=== PATIENT | female | born 1980 | race Caucasian/White ===

== ENCOUNTER 2018-04-05 14:29 | Emergency (ER) | payer MEDICAID ==
[~2018-04-05] VITALS: Ht 165.1 cm; Wt 70.3 kg
--- NOTE | ~2018-04-05 | EKG ---
[place], [place] ELECTROCARDIOGRAM REPORT NAME: ALBA FARIAS UNIT #: [id number] ROOM: DOCTOR: EPIPHANY DRAFT REPORT BIRTHDATE: [birth year] [facility] [place] Test Date: 2018-04-05 Test Time: 14:43:35 Pat Name: ALBA FARIAS Department: Room: Gender: F [employer] Hand: : 1980 Requested By: EDEN BROWN Order Number: [id number] Reading MD: Tom Ly MD Measurements Intervals [place] Rate: 66 P: 53 [place]: 116 QRS: 44 QRSD: 84 T: 48 QT: 417 QTc: 437 Interpretive Statements Sinus rhythm Borderline short [place] interval Electronically Signed On 04-06-2018 8:11:48 PST by Tom Ly MD CM:EKGRPT:ELECTROCARDIOGRAM REPORT [id number] EDEN BATES DRAFT REPORT EDEN BROWN MD
[2018-04-05 15:39] LABS: BILIRUBIN NEGATIVE (NEGATIVE); BLOOD 3+ (NEGATIVE); CLARITY CLEAR (CLEAR); COLOR YELLOW (YELLOW); GLUCOSE NEGATIVE (NEGATIVE); KETONE TRACE (NEGATIVE); LEUKO ESTERASE NEGATIVE (NEGATIVE); NITRITE NEGATIVE (NEGATIVE); UROBILINOGEN 0.2 E.U./dl (0.2-1.0)
[2018-04-05 15:51] LABS: BASO % 0.3 % (0.0-1.0); EOS % 0.1 % (1.0-4.0); HEMATOCRIT 37.3 % (37.0-47.0); HEMOGLOBIN 12.6 g/dl (12.0-16.0); LYMPH # 1.7 10*3/uL (1.3-4.4); LYMPH % 16.2 % (27.0-41.0); MEAN CELL VOLUME 83.4 fl (81.0-99.0); MEAN CORPUSCULAR HGB 28.2 pg (27.0-31.0); MEAN CORPUSCULAR HGB CONC 33.8 g/dl (33.0-37.0); MEAN PLATELET VOLUME 10.1 fl (9.6-12.3); MONO # 0.7 10*3/uL (0.1-1.0); MONO % 7.1 % (3.0-9.0); NEUT # 7.8 10*3/uL (2.3-7.9); NEUT % 75.7 % (47.0-73.0); PLATELET COUNT AUTOMATED 320 10*3/uL (130-400); RED BLOOD COUNT 4.47 10*6/uL (4.10-5.10); RED CELL DISTRI WIDTH 12.2 % (0-14.5); WHITE BLOOD COUNT 10.3 10*3/uL (4.8-10.8)
[2018-04-05 15:54] LABS: BACTERIA 1+; EPITHELIAL CELLS 55-60; RBC TNTC rbc/hpf (0-2)
[2018-04-05 16:00] LABS: INTERNATIONAL NORM RATIO 1.1 (2.0-3.5)
[2018-04-05 16:10] LABS: ALBUMIN 3.8 gm/dl (3.1-4.5); ALKALINE PHOSPHATASE 60 U/L (45-117); BUN 12 mg/dl (7-24); CHLORIDE 101 mmol/L (98-107); LIPASE 111 U/L (73-393); POTASSIUM 3.1 mmol/L (3.5-5.1); SGOT/AST 9 IU/L (3-35); SGPT/ALT 14 U/L (12-78); SODIUM 136 mmol/L (136-145); TOTAL PROTEIN 7.5 gm/dL (6.4-8.2)
[2018-04-05 16:12] LABS: TROPONIN I < 0.015 ng/ml (<0.045)
[2018-04-05] MEDS ORDERED: ZOFRAN4 MG PO (20:59)
[2018-04-05] MEDS ORDERED: ZANTAC 150150 MG PO (20:59)
== END 2018-04-05 22:40 | disposition home or self-care (01) ==
LOC: ED 14:29
PROVIDERS: Physician Assistant
DX: R10.13 Epigastric pain (principal); R07.9 Chest pain, unspecified; R11.2 Nausea with vomiting, unspecified

== ENCOUNTER 2018-12-01 18:25 | Emergency (ER) | payer OTHER ==
[~2018-12-01] VITALS: Ht 167.6 cm; Wt 72.6 kg
[~2018-12-01 18:25] MED LIST: ZANTAC 150150 MG PO; ZOFRAN4 MG PO
[2018-12-01] MEDS ORDERED: NAPROSYN500 MG PO (20:03)
[2018-12-01] MEDS ORDERED: MEDROL DOSEPAK4 MG PO (20:03)
[2018-12-01] MEDS ORDERED: ROBAXIN500 M1 PO (20:03)
== END 2018-12-01 20:23 | disposition home or self-care (01) ==
LOC: ED 18:25
DX: S16.1XXA Strain of muscle, fascia and tendon at neck level, initial encounter (principal); F17.200 Nicotine dependence, unspecified, uncomplicated; Z79.899 Other long term (current) drug therapy; Y04.8XXA Assault by other bodily force, initial encounter; Y93.89 Activity, other specified; Y92.89 Other specified places as the place of occurrence of the external cause; Y99.8 Other external cause status